=== PATIENT | female | born 1985 | race Caucasian/White ===

== ENCOUNTER 2016-11-12 16:37 | Emergency (ER) | payer SELFPAY | END 2016-11-12 16:50 | disposition left against medical advice (07) | LOC: D.ER 16:37 → EDSEX 16:37 → D.ER 16:50 | DX: Z02.9 Encounter for administrative examinations, unspecified (principal) ==

== ENCOUNTER 2016-11-13 10:30 | Emergency (ER) | payer SELFPAY | END 2016-11-13 11:15 | disposition home or self-care (01) | LOC: D.ER 10:30 → EDSEX 10:30 → D.ER 11:15 | DX: R51 Headache (principal); I95.9 Hypotension, unspecified; F17.200 Nicotine dependence, unspecified, uncomplicated ==

== ENCOUNTER 2018-05-21 11:14 | Emergency (ER) | payer MEDICAID ==
[2018-05-21] MEDS ORDERED: VOLTAREN75 MG PO (14:53)
[2018-05-21] MEDS ORDERED: BACLOFEN20 M1 PO (14:53)
[2018-05-21 15:30] VITALS: BP 103/63
== END 2018-05-21 15:48 | disposition home or self-care (01) ==
LOC: D.ER 11:14
DX: S16.1XXA Strain of muscle, fascia and tendon at neck level, initial encounter (principal); W22.8XXA Striking against or struck by other objects, initial encounter; Y93.89 Activity, other specified; Y92.89 Other specified places as the place of occurrence of the external cause; S09.90XA Unspecified injury of head, initial encounter; R51 Headache; F17.200 Nicotine dependence, unspecified, uncomplicated